=== PATIENT | female | born 2005 | race Caucasian/White ===

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

== ENCOUNTER 2024-06-16 13:44 | Emergency (ER) | payer OTHER ==
[~2024-06-16] VITALS: Ht 180.3 cm; Wt 79.9 kg
[2024-06-16 13:52] VITALS: BP 130/67; TEMP 96.2; O2SAT 100
[2024-06-16 14:25] LABS: KETONE, URINE AUTO RFX NEGATIVE (NEGATIVE); LEUKOCYTE ESTERASE UR AUTO RFX 2+ (NEGATIVE); NITRITE, URINE AUTO RFX NEGATIVE (NEGATIVE); RBC, URINE AUTO RFX TNTC /HPF (0-3); SQUAM EPITHELIAL CELL UR AURFX 0 /HPF (0-6); WBC, URINE AUTO RFX TNTC /HPF (0-3)
[2024-06-16] MEDS ORDERED: NITR100C3 PO (17:20)
[2024-06-16] MEDS ORDERED: FLUC150T9 PO (17:24)
== END 2024-06-16 17:41 | disposition home or self-care (01) ==
LOC: M ED 13:44
DX: N39.0 Urinary tract infection, site not specified (principal); Z79.2 Long term (current) use of antibiotics